=== PATIENT | male | born 1970 | race Hispanic/Latino ===

== ENCOUNTER 2025-03-07 19:06 | Emergency (ER) | payer OTHER ==
[~2025-03-07] VITALS: Ht 167.6 cm; Wt 81.6 kg
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
--- NOTE | 2025-03-07 19:24 | NUR ---
Lilliana victor in [facility] - 03/07/25 at 2252 by RAJENDRA PATIENT TAKEN TO DECONTAMINATION LILIA
--- NOTE | 2025-03-07 19:24 | NUR ---
PATIENT TAKEN TO DECONTAMINATION SHOWER
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
[2025-03-07] MEDS ORDERED: POLYOS OP (20:12)
[2025-03-07] MEDS ORDERED: BACI30OI6 TP (20:12)
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
--- NOTE | 2025-03-07 22:08 | HMCIMG ---
EXAM: CR Pelvis, 1 View. CLINICAL HISTORY: L hip pain COMPARISON: None provided. FINDINGS: BONES: No acute fracture or aggressive appearing osseous lesion. JOINTS: No dislocation. The joint spaces are normal. SOFT TISSUES: The soft tissues are unremarkable. IMPRESSION: No acute osseous abnormality. /[place]
[2025-03-07 22:44] VITALS: BP 140/82; PULSE 82; RESP 18; TEMP 98.6; O2SAT 98
== END 2025-03-07 22:52 | disposition home or self-care (01) ==
LOC: EDH 19:06
DX: T22.551A Corrosion of first degree of right shoulder, initial encounter (principal); T21.51XA Corrosion of first degree of chest wall, initial encounter; I10 Essential (primary) hypertension; Z77.098 Contact with and (suspected) exposure to other hazardous, chiefly nonmedicinal, chemicals; Y93.89 Activity, other specified; Y92.89 Other specified places as the place of occurrence of the external cause; Y99.8 Other external cause status
CPT/HCPCS: 72170; 99283